=== PATIENT | male | born 1980 | race Hispanic/Latino ===

== ENCOUNTER 2020-08-22 01:46 | Emergency (ER) | payer BC, OTHER, SELFPAY ==
[2020-08-22] MEDS ORDERED: Ondansetron ODT 4 MG TAB ONE (02:13)
[2020-08-22] MEDS ORDERED: Meclizine HCl 25 MG TAB ONE (02:19)
== END 2020-08-22 02:59 | disposition home or self-care (01) ==
LOC: NAV ERS 01:46
DX: H81.399 Other peripheral vertigo, unspecified ear (principal)
CPT/HCPCS: 93005; Q0162